=== PATIENT | female | born 1990 | race American Indian/Alaskan Native ===

== ENCOUNTER 2021-11-05 13:42 | Outpatient (CLI) | payer OTHER ==
[2021-11-05] MEDS ORDERED: LACTATED RINGERS 500 ML IV ONE (14:28)
[2021-11-05 15:52] LABS: Mucus,Urine 3+ /HPF
[2021-11-05 15:59] LABS: Bilirubin,Urine NEG (Negative); Blood,Urine Large (Negative); Color,Urine Red (Yellow); RBC,Urine > 182.0 /HPF (0.0-6.0); WBC,Urine > 182.0 /HPF (0.0-6.0)
[2021-11-05 16:23] VITALS: BP 110/62
--- NOTE | 2021-11-05 16:38 | Event Note ---
Date: 11/05/21 UA results reviewed with large blood. patient's pain rated 2/10 c/w UTI. Spec exam done - no vaginal bleeding noted, only normal thin nonodorus white discharge. reviewed findings with patient and s/o, plan to d/c home on macrobid and adjust abx if necessary based on culture. FHT CAT 1 as expected for gestation, no ctx noted.
== END 2021-11-05 16:50 | disposition home or self-care (01) ==
LOC: TRG 13:42 → APU 13:43 → TRG 16:50
PROVIDERS: ATTEND Obstetrics & Gynecology
DX: O46.92 Antepartum hemorrhage, unspecified, second trimester (principal); O26.892 Other specified pregnancy related conditions, second trimester; R10.2 Pelvic and perineal pain; Z3A.25 25 weeks gestation of pregnancy
CPT/HCPCS: 59025; 81001; 87086

== ENCOUNTER 2022-02-22 23:17 | Inpatient (IN) | payer OTHER ==
[2022-02-23] MEDS ORDERED: TERBUTALINE 1 MG/1 ML INJ SUB-Q PRN (03:02)
[2022-02-23] MEDS ORDERED: LOPERAMIDE 2 MG CAP PO PRN (03:02)
[2022-02-23] MEDS ORDERED: METHYLERGONOVINE MALEATE 0.2 MG/ML VIAL IM PRN (03:02)
[2022-02-23] MEDS ORDERED: BUTORPHANOL 2 MG/1 ML INJ IV PRN (03:02)
[2022-02-23] MEDS ORDERED: ACETAMINOPHEN 325 MG TAB PO PRN (03:02)
[2022-02-23] MEDS ORDERED: ePHEDrine SULFATE 50 MG/1 ML INJ IV PRN (03:02)
[2022-02-23] MEDS ORDERED: OXYTOCIN 10 UNIT/1 ML INJ IM PRN (03:02)
[2022-02-23] MEDS ORDERED: LIDOCAINE (2%) 20 MG/1 ML VIAL 20 ML MDV INFILTRATI ONE ×2 (03:02→13:14)
[2022-02-23] MEDS ORDERED: CARBOPROST TROMETHAMINE 250 MCG/1 ML INJ IM PRN (03:02)
[2022-02-23] MEDS ORDERED: MINERAL OIL 30 ML ORAL LIQD PO PRN (03:02)
[2022-02-23] MEDS ORDERED: miSOPROStol 200 MCG TAB PR PRN (03:02)
--- NOTE | 2022-02-23 03:08 | History and Physical Report ---
History of Present Illness Date of examination: 02/23/22 Date of admission: 02/23/2022 Chief complaint: contractions History of present illness: Patient is a 31 yo [id number] at 40w5d presenting with contractions. +FM. Denies leakage of fluid and vaginal bleeding. Past History Past Medical History: no pertinent history Past Surgical History: no surgical history Family/Genetic History: hypertension, stroke, cancer Social history: no significant social history - Obstetrical History Expected Date of Delivery: 02/18/22 Actual Gestation: 40 Week(s) 5 Day(s) : 4 Para: 3 Hx # Term Pregnancies: 3 Number of Pregnancies: 0 Spontaneous Abortions: 0 Induced : 0 Number of Living Children: 3 Medications and Allergies Allergies Allergy/AdvReac Type Severity Reaction Status Date / Time No Known Allergies Allergy Unverified 11/05/21 14:27 Home Medications Medication Instructions Recorded Confirmed Last Taken Type Nitrofurantoin [place]/M-Cryst 100 mg PO Q12HR #14 capsule 11/05/21 02/23/22 Unknown Rx [Macrobid CAP] Review of Systems Genitourinary: contractions - Vital Signs Vital signs: Vital Signs Pulse BP 89 120/66 02/22/22 23:38 02/22/22 23:38 Temp Pulse Resp BP Pulse Ox 36.8 F L 82 16 124/77 100 02/22/22 23:50 02/23/22 03:02 02/22/22 23:50 02/23/22 02:35 02/23/22 03:02 - Physical Exam Abdomen: Positive: normal appearance Vulva: both: normal Extremities: Positive: normal - Obstetrical FHR: category 1 Uterine Contraction Monitor Mode: External Cervical Dilatation: 5 Cervical Effacement Percentage: 80 station: -1 Uterine Contraction Pattern: Regular Results Result Diagrams: 02/23/22 03:40 All other labs normal. Assessment and Plan Admit to L&D for labor GBS negative Type and screen, CBC, and COVID Anticipate - Patient Problems (1) 40 weeks gestation of Current Visit: Yes Status: Acute (2) Uterine contractions Current Visit: Yes Status: Acute
[2022-02-23] MEDS ORDERED: LACTATED RINGERS 1,000 ML IV SCH (03:15)
[2022-02-23] MEDS ORDERED: OXYTOCIN DRIP 30 UNITS/500 ML BAG IV SCH ×3 (04:00→15:00)
[2022-02-23] MEDS: fentaNYL 100 MCG/2 ML INJ IV PRN ×2 (04:09→07:27)
[2022-02-23 04:57] LABS: Hematocrit 31.7 % (30.3-42.9); Hemoglobin 10.1 gm/dl (10.1-14.3); Mean Corpuscular HGB Conc 32 % (30-34); Mean Corpuscular Volume 84 fl (79-97); Platelet Count 289 K/mm3 (140-440); Red Blood Count 3.78 M/mm3 (3.65-5.03); Red Cell Distribution Width 14.9 % (13.2-15.2)
--- NOTE | 2022-02-23 11:16 | Progress Note ---
Subjective - Subjective Interval history: Patient is a 31 yo [id number] at 40w5d presenting with contractions. Objective - Vital Signs Vital Signs: Vital Signs - 12hr 02/22/22 02/22/22 02/22/22 23:38 23:50 23:52 Temperature 36.8 F L Pulse Rate 89 89 82 Respiratory 16 Rate Blood Pressure 120/66 Blood Pressure 120/66 [Right] O2 Sat by Pulse 97 97 Oximetry O2 Sat by Pulse Oximetry [ Anterior Bilateral Throughout] 02/22/22 02/23/22 02/23/22 23:57 00:02 00:07 Temperature Pulse Rate 85 83 82 Respiratory Rate Blood Pressure Blood Pressure [Right] O2 Sat by Pulse 98 98 97 Oximetry O2 Sat by Pulse Oximetry [ Anterior Bilateral Throughout] 02/23/22 02/23/22 02/23/22 00:12 00:17 00:22 Temperature Pulse Rate 80 89 88 Respiratory Rate Blood Pressure Blood Pressure [Right] O2 Sat by Pulse 98 99 98 Oximetry O2 Sat by Pulse Oximetry [ Anterior Bilateral Throughout] 02/23/22 02/23/22 02/23/22 00:27 00:32 00:37 Temperature Pulse Rate 88 94 H 77 Respiratory Rate Blood Pressure Blood Pressure [Right] O2 Sat by Pulse 98 98 98 Oximetry O2 Sat by Pulse Oximetry [ Anterior Bilateral Throughout] 02/23/22 02/23/22 02/23/22 00:42 00:47 00:52 Temperature Pulse Rate 83 97 H 77 Respiratory Rate Blood Pressure Blood Pressure [Right] O2 Sat by Pulse 97 98 99 Oximetry O2 Sat by Pulse Oximetry [ Anterior Bilateral Throughout] 02/23/22 02/23/22 02/23/22 00:57 01:02 01:07 Temperature Pulse Rate 95 H 89 87 Respiratory Rate Blood Pressure Blood Pressure [Right] O2 Sat by Pulse 99 99 98 Oximetry O2 Sat by Pulse Oximetry [ Anterior Bilateral Throughout] 02/23/22 02/23/22 02/23/22 01:37 01:42 01:47 Temperature Pulse Rate 78 86 82 Respiratory Rate Blood Pressure Blood Pressure [Right] O2 Sat by Pulse 99 99 99 Oximetry O2 Sat by Pulse Oximetry [ Anterior Bilateral Throughout] 02/23/22 02/23/22 02/23/22 01:52 01:57 02:02 Temperature Pulse Rate 86 87 83 Respiratory Rate Blood Pressure Blood Pressure [Right] O2 Sat by Pulse 99 98 99 Oximetry O2 Sat by Pulse Oximetry [ Anterior Bilateral Throughout] 02/23/22 02/23/22 02/23/22 02:07 02:12 02:17 Temperature Pulse Rate 81 77 81 Respiratory Rate Blood Pressure Blood Pressure [Right] O2 Sat by Pulse 99 100 99 Oximetry O2 Sat by Pulse Oximetry [ Anterior Bilateral Throughout] 02/23/22 02/23/22 02/23/22 02:22 02:32 02:35 Temperature Pulse Rate 82 72 71 Respiratory Rate Blood Pressure 124/77 Blood Pressure [Right] O2 Sat by Pulse 99 99 Oximetry O2 Sat by Pulse Oximetry [ Anterior Bilateral Throughout] 02/23/22 02/23/22 02/23/22 02:37 02:42 02:47 Temperature Pulse Rate 76 81 76 Respiratory Rate Blood Pressure Blood Pressure [Right] O2 Sat by Pulse 100 98 98 Oximetry O2 Sat by Pulse Oximetry [ Anterior Bilateral Throughout] 02/23/22 02/23/22 02/23/22 02:52 02:57 03:02 Temperature Pulse Rate 81 77 82 Respiratory Rate Blood Pressure Blood Pressure [Right] O2 Sat by Pulse 99 100 100 Oximetry O2 Sat by Pulse Oximetry [ Anterior Bilateral Throughout] 02/23/22 02/23/22 02/23/22 03:07 03:12 03:17 Temperature Pulse Rate 77 78 85 Respiratory Rate Blood Pressure Blood Pressure [Right] O2 Sat by Pulse 100 100 99 Oximetry O2 Sat by Pulse Oximetry [ Anterior Bilateral Throughout] 02/23/22 02/23/22 02/23/22 03:50 04:09 05:18 Temperature 97.7 F Pulse Rate 45 L Respiratory 17 16 Rate Blood Pressure Blood Pressure [Right] O2 Sat by Pulse 69 L Oximetry O2 Sat by Pulse 98 Oximetry [ Anterior Bilateral Throughout] 02/23/22 02/23/22 02/23/22 05:23 05:28 05:33 Temperature Pulse Rate 73 83 80 Respiratory Rate Blood Pressure Blood Pressure [Right] O2 Sat by Pulse 99 100 99 Oximetry O2 Sat by Pulse Oximetry [ Anterior Bilateral Throughout] 02/23/22 02/23/22 02/23/22 05:38 05:43 05:48 Temperature Pulse Rate 80 89 81 Respiratory Rate Blood Pressure Blood Pressure [Right] O2 Sat by Pulse 99 99 99 Oximetry O2 Sat by Pulse Oximetry [ Anterior Bilateral Throughout] 02/23/22 02/23/22 02/23/22 05:53 05:58 06:03 Temperature Pulse Rate 78 85 82 Respiratory Rate Blood Pressure Blood Pressure [Right] O2 Sat by Pulse 99 99 99 Oximetry O2 Sat by Pulse Oximetry [ Anterior Bilateral Throughout] 02/23/22 02/23/22 02/23/22 06:08 06:13 06:18 Temperature Pulse Rate 79 87 80 Respiratory Rate Blood Pressure Blood Pressure [Right] O2 Sat by Pulse 96 98 99 Oximetry O2 Sat by Pulse Oximetry [ Anterior Bilateral Throughout] 02/23/22 02/23/22 02/23/22 06:23 06:28 06:33 Temperature Pulse Rate 90 81 80 Respiratory Rate Blood Pressure Blood Pressure [Right] O2 Sat by Pulse 100 99 100 Oximetry O2 Sat by Pulse Oximetry [ Anterior Bilateral Throughout] 02/23/22 02/23/22 02/23/22 06:38 06:43 06:48 Temperature Pulse Rate 86 84 89 Respiratory Rate Blood Pressure Blood Pressure [Right] O2 Sat by Pulse 99 98 99 Oximetry O2 Sat by Pulse Oximetry [ Anterior Bilateral Throughout] 02/23/22 02/23/22 02/23/22 07:02 07:07 07:12 Temperature Pulse Rate 84 81 75 Respiratory Rate Blood Pressure 113/67 Blood Pressure [Right] O2 Sat by Pulse 100 99 99 Oximetry O2 Sat by Pulse Oximetry [ Anterior Bilateral Throughout] 02/23/22 02/23/22 02/23/22 07:15 07:17 07:22 Temperature 97.8 F Pulse Rate 81 77 Respiratory Rate Blood Pressure Blood Pressure [Right] O2 Sat by Pulse 98 99 Oximetry O2 Sat by Pulse 98 Oximetry [ Anterior Bilateral Throughout] 02/23/22 02/23/22 02/23/22 07:27 07:32 07:33 Temperature Pulse Rate 74 78 87 Respiratory 16 Rate Blood Pressure Blood Pressure [Right] O2 Sat by Pulse 98 95 94 Oximetry O2 Sat by Pulse Oximetry [ Anterior Bilateral Throughout] 02/23/22 02/23/22 02/23/22 07:37 07:40 07:42 Temperature Pulse Rate 78 83 76 Respiratory Rate Blood Pressure Blood Pressure [Right] O2 Sat by Pulse 95 94 95 Oximetry O2 Sat by Pulse Oximetry [ Anterior Bilateral Throughout] 02/23/22 02/23/22 02/23/22 07:47 07:48 07:52 Temperature Pulse Rate 77 82 79 Respiratory Rate Blood Pressure Blood Pressure [Right] O2 Sat by Pulse 95 93 95 Oximetry O2 Sat by Pulse Oximetry [ Anterior Bilateral Throughout] 02/23/22 02/23/22 02/23/22 07:57 07:59 08:02 Temperature Pulse Rate 79 76 78 Respiratory Rate Blood Pressure Blood Pressure [Right] O2 Sat by Pulse 95 94 95 Oximetry O2 Sat by Pulse Oximetry [ Anterior Bilateral Throughout] 02/23/22 02/23/22 02/23/22 08:05 08:07 08:12 Temperature Pulse Rate 77 78 76 Respiratory Rate Blood Pressure Blood Pressure [Right] O2 Sat by Pulse 94 96 98 Oximetry O2 Sat by Pulse Oximetry [ Anterior Bilateral Throughout] 02/23/22 02/23/22 02/23/22 08:17 08:22 08:27 Temperature Pulse Rate 79 79 79 Respiratory Rate Blood Pressure Blood Pressure [Right] O2 Sat by Pulse 97 96 96 Oximetry O2 Sat by Pulse Oximetry [ Anterior Bilateral Throughout] 02/23/22 02/23/22 02/23/22 08:32 08:37 08:42 Temperature Pulse Rate 84 81 75 Respiratory Rate Blood Pressure Blood Pressure [Right] O2 Sat by Pulse 97 97 97 Oximetry O2 Sat by Pulse Oximetry [ Anterior Bilateral Throughout] 02/23/22 02/23/22 02/23/22 08:47 08:52 08:57 Temperature Pulse Rate 86 76 81 Respiratory Rate Blood Pressure Blood Pressure [Right] O2 Sat by Pulse 97 96 99 Oximetry O2 Sat by Pulse Oximetry [ Anterior Bilateral Throughout] 02/23/22 02/23/22 02/23/22 09:02 09:07 09:12 Temperature Pulse Rate 88 76 77 Respiratory Rate Blood Pressure Blood Pressure [Right] O2 Sat by Pulse 99 98 97 Oximetry O2 Sat by Pulse Oximetry [ Anterior Bilateral Throughout] 02/23/22 02/23/22 02/23/22 09:17 10:00 10:05 Temperature Pulse Rate 79 92 H 90 Respiratory Rate Blood Pressure 120/73 Blood Pressure [Right] O2 Sat by Pulse 98 0 L 99 Oximetry O2 Sat by Pulse Oximetry [ Anterior Bilateral Throughout] 02/23/22 02/23/22 02/23/22 10:10 10:15 10:20 Temperature Pulse Rate 90 96 H 94 H Respiratory Rate Blood Pressure Blood Pressure [Right] O2 Sat by Pulse 99 98 98 Oximetry O2 Sat by Pulse Oximetry [ Anterior Bilateral Throughout] 02/23/22 02/23/22 02/23/22 10:25 10:30 10:35 Temperature Pulse Rate 97 H 74 86 Respiratory Rate Blood Pressure Blood Pressure [Right] O2 Sat by Pulse 99 96 98 Oximetry O2 Sat by Pulse Oximetry [ Anterior Bilateral Throughout] 02/23/22 02/23/22 02/23/22 10:40 10:45 10:50 Temperature Pulse Rate 105 H 86 91 H Respiratory Rate Blood Pressure Blood Pressure [Right] O2 Sat by Pulse 98 98 99 Oximetry O2 Sat by Pulse Oximetry [ Anterior Bilateral Throughout] 02/23/22 02/23/22 02/23/22 10:55 11:00 11:05 Temperature Pulse Rate 85 72 88 Respiratory Rate Blood Pressure 123/72 Blood Pressure [Right] O2 Sat by Pulse 99 95 98 Oximetry O2 Sat by Pulse Oximetry [ Anterior Bilateral Throughout] 02/23/22 11:10 Temperature Pulse Rate 81 Respiratory Rate Blood Pressure Blood Pressure [Right] O2 Sat by Pulse 98 Oximetry O2 Sat by Pulse Oximetry [ Anterior Bilateral Throughout] - Labs Labs: Abnormal Labs 02/23/22 03:40 MCH 27 L Laboratory Results - last 24 hr 02/23/22 02/23/22 03:40 03:40 WBC 6.7 RBC 3.78 Hgb 10.1 Hct 31.7 MCV 84 MCH 27 L MCHC 32 RDW 14.9 Plt Count 289 Blood Type A POSITIVE Antibody Screen Negative
--- NOTE | 2022-02-23 11:27 | Progress Note ---
Assessment and Plan Contractions now q7 Will begin augmentation with pitocin Anticipate - Patient Problems (1) 40 weeks gestation of Current Visit: Yes Status: Acute (2) Uterine contractions Current Visit: Yes Status: Acute Subjective - Subjective Date of service: 02/23/22 Interval history: Late entry: Patient lying in bed. States she feels fine s/p pain medication. Patient reports: movement normal, contractions Objective - Vital Signs Vital Signs: Vital Signs - 12hr 02/22/22 02/22/22 02/22/22 23:38 23:50 23:52 Temperature 36.8 F L Pulse Rate 89 89 82 Respiratory 16 Rate Blood Pressure 120/66 Blood Pressure 120/66 [Right] O2 Sat by Pulse 97 97 Oximetry O2 Sat by Pulse Oximetry [ Anterior Bilateral Throughout] 02/22/22 02/23/22 02/23/22 23:57 00:02 00:07 Temperature Pulse Rate 85 83 82 Respiratory Rate Blood Pressure Blood Pressure [Right] O2 Sat by Pulse 98 98 97 Oximetry O2 Sat by Pulse Oximetry [ Anterior Bilateral Throughout] 02/23/22 02/23/22 02/23/22 00:12 00:17 00:22 Temperature Pulse Rate 80 89 88 Respiratory Rate Blood Pressure Blood Pressure [Right] O2 Sat by Pulse 98 99 98 Oximetry O2 Sat by Pulse Oximetry [ Anterior Bilateral Throughout] 02/23/22 02/23/22 02/23/22 00:27 00:32 00:37 Temperature Pulse Rate 88 94 H 77 Respiratory Rate Blood Pressure Blood Pressure [Right] O2 Sat by Pulse 98 98 98 Oximetry O2 Sat by Pulse Oximetry [ Anterior Bilateral Throughout] 02/23/22 02/23/22 02/23/22 00:42 00:47 00:52 Temperature Pulse Rate 83 97 H 77 Respiratory Rate Blood Pressure Blood Pressure [Right] O2 Sat by Pulse 97 98 99 Oximetry O2 Sat by Pulse Oximetry [ Anterior Bilateral Throughout] 02/23/22 02/23/22 02/23/22 00:57 01:02 01:07 Temperature Pulse Rate 95 H 89 87 Respiratory Rate Blood Pressure Blood Pressure [Right] O2 Sat by Pulse 99 99 98 Oximetry O2 Sat by Pulse Oximetry [ Anterior Bilateral Throughout] 02/23/22 02/23/22 02/23/22 01:37 01:42 01:47 Temperature Pulse Rate 78 86 82 Respiratory Rate Blood Pressure Blood Pressure [Right] O2 Sat by Pulse 99 99 99 Oximetry O2 Sat by Pulse Oximetry [ Anterior Bilateral Throughout] 02/23/22 02/23/22 02/23/22 01:52 01:57 02:02 Temperature Pulse Rate 86 87 83 Respiratory Rate Blood Pressure Blood Pressure [Right] O2 Sat by Pulse 99 98 99 Oximetry O2 Sat by Pulse Oximetry [ Anterior Bilateral Throughout] 02/23/22 02/23/22 02/23/22 02:07 02:12 02:17 Temperature Pulse Rate 81 77 81 Respiratory Rate Blood Pressure Blood Pressure [Right] O2 Sat by Pulse 99 100 99 Oximetry O2 Sat by Pulse Oximetry [ Anterior Bilateral Throughout] 02/23/22 02/23/22 02/23/22 02:22 02:32 02:35 Temperature Pulse Rate 82 72 71 Respiratory Rate Blood Pressure 124/77 Blood Pressure [Right] O2 Sat by Pulse 99 99 Oximetry O2 Sat by Pulse Oximetry [ Anterior Bilateral Throughout] 02/23/22 02/23/22 02/23/22 02:37 02:42 02:47 Temperature Pulse Rate 76 81 76 Respiratory Rate Blood Pressure Blood Pressure [Right] O2 Sat by Pulse 100 98 98 Oximetry O2 Sat by Pulse Oximetry [ Anterior Bilateral Throughout] 02/23/22 02/23/22 02/23/22 02:52 02:57 03:02 Temperature Pulse Rate 81 77 82 Respiratory Rate Blood Pressure Blood Pressure [Right] O2 Sat by Pulse 99 100 100 Oximetry O2 Sat by Pulse Oximetry [ Anterior Bilateral Throughout] 02/23/22 02/23/22 02/23/22 03:07 03:12 03:17 Temperature Pulse Rate 77 78 85 Respiratory Rate Blood Pressure Blood Pressure [Right] O2 Sat by Pulse 100 100 99 Oximetry O2 Sat by Pulse Oximetry [ Anterior Bilateral Throughout] 02/23/22 02/23/22 02/23/22 03:50 04:09 05:18 Temperature 97.7 F Pulse Rate 45 L Respiratory 17 16 Rate Blood Pressure Blood Pressure [Right] O2 Sat by Pulse 69 L Oximetry O2 Sat by Pulse 98 Oximetry [ Anterior Bilateral Throughout] 02/23/22 02/23/22 02/23/22 05:23 05:28 05:33 Temperature Pulse Rate 73 83 80 Respiratory Rate Blood Pressure Blood Pressure [Right] O2 Sat by Pulse 99 100 99 Oximetry O2 Sat by Pulse Oximetry [ Anterior Bilateral Throughout] 02/23/22 02/23/22 02/23/22 05:38 05:43 05:48 Temperature Pulse Rate 80 89 81 Respiratory Rate Blood Pressure Blood Pressure [Right] O2 Sat by Pulse 99 99 99 Oximetry O2 Sat by Pulse Oximetry [ Anterior Bilateral Throughout] 02/23/22 02/23/22 02/23/22 05:53 05:58 06:03 Temperature Pulse Rate 78 85 82 Respiratory Rate Blood Pressure Blood Pressure [Right] O2 Sat by Pulse 99 99 99 Oximetry O2 Sat by Pulse Oximetry [ Anterior Bilateral Throughout] 02/23/22 02/23/22 02/23/22 06:08 06:13 06:18 Temperature Pulse Rate 79 87 80 Respiratory Rate Blood Pressure Blood Pressure [Right] O2 Sat by Pulse 96 98 99 Oximetry O2 Sat by Pulse Oximetry [ Anterior Bilateral Throughout] 02/23/22 02/23/22 02/23/22 06:23 06:28 06:33 Temperature Pulse Rate 90 81 80 Respiratory Rate Blood Pressure Blood Pressure [Right] O2 Sat by Pulse 100 99 100 Oximetry O2 Sat by Pulse Oximetry [ Anterior Bilateral Throughout] 02/23/22 02/23/22 02/23/22 06:38 06:43 06:48 Temperature Pulse Rate 86 84 89 Respiratory Rate Blood Pressure Blood Pressure [Right] O2 Sat by Pulse 99 98 99 Oximetry O2 Sat by Pulse Oximetry [ Anterior Bilateral Throughout] 02/23/22 02/23/22 02/23/22 07:02 07:07 07:12 Temperature Pulse Rate 84 81 75 Respiratory Rate Blood Pressure 113/67 Blood Pressure [Right] O2 Sat by Pulse 100 99 99 Oximetry O2 Sat by Pulse Oximetry [ Anterior Bilateral Throughout] 02/23/22 02/23/22 02/23/22 07:15 07:17 07:22 Temperature 97.8 F Pulse Rate 81 77 Respiratory Rate Blood Pressure Blood Pressure [Right] O2 Sat by Pulse 98 99 Oximetry O2 Sat by Pulse 98 Oximetry [ Anterior Bilateral Throughout] 02/23/22 02/23/22 02/23/22 07:27 07:32 07:33 Temperature Pulse Rate 74 78 87 Respiratory 16 Rate Blood Pressure Blood Pressure [Right] O2 Sat by Pulse 98 95 94 Oximetry O2 Sat by Pulse Oximetry [ Anterior Bilateral Throughout] 02/23/22 02/23/22 02/23/22 07:37 07:40 07:42 Temperature Pulse Rate 78 83 76 Respiratory Rate Blood Pressure Blood Pressure [Right] O2 Sat by Pulse 95 94 95 Oximetry O2 Sat by Pulse Oximetry [ Anterior Bilateral Throughout] 02/23/22 02/23/22 02/23/22 07:47 07:48 07:52 Temperature Pulse Rate 77 82 79 Respiratory Rate Blood Pressure Blood Pressure [Right] O2 Sat by Pulse 95 93 95 Oximetry O2 Sat by Pulse Oximetry [ Anterior Bilateral Throughout] 02/23/22 02/23/22 02/23/22 07:57 07:59 08:02 Temperature Pulse Rate 79 76 78 Respiratory Rate Blood Pressure Blood Pressure [Right] O2 Sat by Pulse 95 94 95 Oximetry O2 Sat by Pulse Oximetry [ Anterior Bilateral Throughout] 02/23/22 02/23/22 02/23/22 08:05 08:07 08:12 Temperature Pulse Rate 77 78 76 Respiratory Rate Blood Pressure Blood Pressure [Right] O2 Sat by Pulse 94 96 98 Oximetry O2 Sat by Pulse Oximetry [ Anterior Bilateral Throughout] 02/23/22 02/23/22 02/23/22 08:17 08:22 08:27 Temperature Pulse Rate 79 79 79 Respiratory Rate Blood Pressure Blood Pressure [Right] O2 Sat by Pulse 97 96 96 Oximetry O2 Sat by Pulse Oximetry [ Anterior Bilateral Throughout] 02/23/22 02/23/22 02/23/22 08:32 08:37 08:42 Temperature Pulse Rate 84 81 75 Respiratory Rate Blood Pressure Blood Pressure [Right] O2 Sat by Pulse 97 97 97 Oximetry O2 Sat by Pulse Oximetry [ Anterior Bilateral Throughout] 02/23/22 02/23/22 02/23/22 08:47 08:52 08:57 Temperature Pulse Rate 86 76 81 Respiratory Rate Blood Pressure Blood Pressure [Right] O2 Sat by Pulse 97 96 99 Oximetry O2 Sat by Pulse Oximetry [ Anterior Bilateral Throughout] 02/23/22 02/23/22 02/23/22 09:02 09:07 09:12 Temperature Pulse Rate 88 76 77 Respiratory Rate Blood Pressure Blood Pressure [Right] O2 Sat by Pulse 99 98 97 Oximetry O2 Sat by Pulse Oximetry [ Anterior Bilateral Throughout] 02/23/22 02/23/22 02/23/22 09:17 10:00 10:05 Temperature Pulse Rate 79 92 H 90 Respiratory Rate Blood Pressure 120/73 Blood Pressure [Right] O2 Sat by Pulse 98 0 L 99 Oximetry O2 Sat by Pulse Oximetry [ Anterior Bilateral Throughout] 02/23/22 02/23/22 02/23/22 10:10 10:15 10:20 Temperature Pulse Rate 90 96 H 94 H Respiratory Rate Blood Pressure Blood Pressure [Right] O2 Sat by Pulse 99 98 98 Oximetry O2 Sat by Pulse Oximetry [ Anterior Bilateral Throughout] 02/23/22 02/23/22 02/23/22 10:25 10:30 10:35 Temperature Pulse Rate 97 H 74 86 Respiratory Rate Blood Pressure Blood Pressure [Right] O2 Sat by Pulse 99 96 98 Oximetry O2 Sat by Pulse Oximetry [ Anterior Bilateral Throughout] 02/23/22 02/23/22 02/23/22 10:40 10:45 10:50 Temperature Pulse Rate 105 H 86 91 H Respiratory Rate Blood Pressure Blood Pressure [Right] O2 Sat by Pulse 98 98 99 Oximetry O2 Sat by Pulse Oximetry [ Anterior Bilateral Throughout] 02/23/22 02/23/22 02/23/22 10:55 11:00 11:05 Temperature Pulse Rate 85 72 88 Respiratory Rate Blood Pressure 123/72 Blood Pressure [Right] O2 Sat by Pulse 99 95 98 Oximetry O2 Sat by Pulse Oximetry [ Anterior Bilateral Throughout] 02/23/22 02/23/22 02/23/22 11:10 11:15 11:20 Temperature Pulse Rate 81 84 80 Respiratory Rate Blood Pressure Blood Pressure [Right] O2 Sat by Pulse 98 97 99 Oximetry O2 Sat by Pulse Oximetry [ Anterior Bilateral Throughout] - Exam FHR: category 1 Cervical Dilatation: 6 Cervical Effacement Percentage: 80 station: -1 Uterine Contraction Pattern: Regular - Labs Labs: Abnormal Labs 02/23/22 03:40 MCH 27 L Laboratory Results - last 24 hr 02/23/22 02/23/22 03:40 03:40 WBC 6.7 RBC 3.78 Hgb 10.1 Hct 31.7 MCV 84 MCH 27 L MCHC 32 RDW 14.9 Plt Count 289 Blood Type A POSITIVE Antibody Screen Negative
--- NOTE | 2022-02-23 12:48 | Event Note ---
Date: 02/23/22 AROM clear. SVE . Will continue with pitocin augmentation.
[2022-02-23] MEDS ORDERED: miSOPROStol 200 MCG TAB ONE (13:14)
--- NOTE | 2022-02-23 13:27 | Procedure Note ---
OB Delivery Note - Delivery Date of Delivery: 02/23/22 Surgeon: DUNIA MENDIETA Estimated blood loss: 300cc - Vaginal Delivery presentation: vertex Delivery position: OA Intrapartum events: none Delivery induction: none Delivery augmentation: rupture of membranes, pitocin Delivery monitor: external FHT, external uterine Route of delivery: Delivery placenta: spontaneous Delivery cord: nuchal cord Episiotomy: none Delivery laceration: none Anesthesia: none Delivery comments: To patient room for urge to push. C/C/+3. With good maternal pushing effort delivery of head in VENUS position over an intact perineum. Nuchal cord noted and reduced. Remainder of delivered without difficulty. Placenta delivered intact with 3 vessel cord. No lacerations noted. Cytotec 800 mcg placed NC. Hemostasis noted. Mother and remain in the delivery room in stable condition. - Infant A at 1 minute: 8 at 5 minutes: 9 Infant Gender: Female (3090g)
[2022-02-23] MEDS ORDERED: diphenhydrAMINE 25 MG CAP PO PRN (15:00)
[2022-02-23] MEDS ORDERED: PROMETHAZINE 25 MG TAB PO PRN (15:00)
[2022-02-23] MEDS ORDERED: MAGNESIUM HYDROXIDE (MOM) ORAL LIQD UDC PO PRN (15:00)
[2022-02-23] MEDS ORDERED: ONDANSETRON 4 MG/2 ML INJ IV PRN (15:00)
[2022-02-23] MEDS ORDERED: oxyCODONE /ACETAMINOPHEN 5-325MG TAB PO PRN (15:00)
[2022-02-23] MEDS ORDERED: PROMETHAZINE 25 MG RECT SUPP PR PRN (15:00)
[2022-02-23] MEDS ORDERED: LANOLIN/ZINC/DIMETHICONE (LANSINOH) 7 GM TP PRN (15:00)
[2022-02-23] MEDS ORDERED: WITCH HAZEL/ GLYCERIN PAD TP PRN (15:00)
[2022-02-23] MEDS: IBUPROFEN 800 MG TAB PO SCH ×2 (15:07→20:00)
[2022-02-24] MEDS: IBUPROFEN 800 MG TAB PO SCH (01:57)
[2022-02-24 06:52] LABS: Hematocrit 29.3 % (30.3-42.9); Hemoglobin 9.5 gm/dl (10.1-14.3)
--- NOTE | 2022-02-24 08:10 | Discharge Summary ---
Providers - Providers Date of Admission: 02/23/22 03:03 Date of discharge: 02/24/22 Attending physician: DUNIA MENDIETA MD Primary care physician: DUNIA MENDIETA MD Hospitalization Condition: Good Hospital course: H/H 9.5/29.3 Disposition: 01 HOME / SELF CARE / HOMELESS Final Discharge Diagnosis (Prints w/discharge instructions): Time spent for discharge: 20 Core Measure Documentation - Palliative Care Palliative Care/ Comfort Measures: Not Applicable - Core Measures Any of the following diagnoses?: none Exam - Physical Exam Narrative exam: pt in bed resting quietly, no complaints voiced at this time. Fundus firm, lochia normal. Currently breast feeding. Desires Nexplanon for BC at [facility]. Discharge planning for today. Instructed to continue iron supplementation. F/U in 6 weeks for PPV. - Constitutional Vitals: Temp Pulse Resp BP Pulse Ox 98.3 F 74 18 120/62 97 02/24/22 02:14 02/24/22 02:14 02/24/22 02:14 02/24/22 02:14 02/24/22 02:14 General appearance: Present: no acute distress, well-nourished - EENT Eyes: Present: PERRL ENT: hearing intact, clear oral mucosa - Neck Neck: Present: supple, normal ROM - Respiratory Respiratory effort: normal Respiratory: bilateral: CTA - Cardiovascular Rhythm: regular Heart Sounds: Absent: rub, click - Extremities Extremities: pulses symmetrical, No edema Peripheral Pulses: within normal limits - Abdominal General gastrointestinal: Present: soft, non-tender, non-distended, normal bowel sounds Female genitourinary: Present: normal - Rectal Rectal Exam: deferred - Integumentary Integumentary: Present: clear, warm, dry - Musculoskeletal Musculoskeletal: gait normal, strength equal bilaterally - Psychiatric Psychiatric: appropriate mood/affect, intact judgment & insight - Neurologic Neurologic: moves all extremities Plan Activity: no restrictions Weight Bearing Status: Non-Weight Bearing Diet: regular Follow up with: DUNIA MENDIETA MD [Primary Care Provider] - 6 Weeks (Congratulations! Please call [phone] to schedule your visit in 6 weeks. Please call if you have any questions or concerns after discharge.)
[2022-02-24 09:38] VITALS: BP 114/66
[2022-02-24] MEDS ORDERED: PRENATAL VIT27-FE FUMARATE-FOLIC ACID VIT TAB PO SCH (10:00)
== END 2022-02-24 16:50 | disposition home or self-care (01) | DRG 775 ==
LOC: TRG 23:17 → APU 23:18 → LD 02-23 03:03 → TRG 02-23 03:03 → LD 02-23 03:28 → OB 02-23 15:20
PROVIDERS: ADMIT Student in an Organized Health Care Education/Training Program; ATTEND Student in an Organized Health Care Education/Training Program
PROC: 10E0XZZ Delivery of Products of Conception, External Approach (ICD-10-PCS; principal; 2022-02-23)
PROC: 10907ZC Drainage of Amniotic Fluid, Therapeutic from Products of Conception, Via Natural or Artificial Opening (ICD-10-PCS; 2022-02-23)
DX: O69.81X0 Labor and delivery complicated by cord around neck, without compression, not applicable or unspecified (principal); Z37.0 Single live birth; Z3A.40 40 weeks gestation of pregnancy; Z20.822 Contact with and (suspected) exposure to COVID-19
CPT/HCPCS: 36415; 85014; 85018; 85027; 86850; 86900; 86901; G0378; J2590; J3010; U0003